=== PATIENT | female | born 1950 | race Caucasian/White ===

== ENCOUNTER 2020-06-18 10:08 | Emergency (ER) | payer OTHER, BC ==
[2020-06-18 10:20] VITALS: BP 162/98; PULSE 108; TEMP 97.9; BMI 25.7
[2020-06-18] MEDS ORDERED: SODIUM CHLORIDE 0.9% 500 ML INFUS.BAG IV ONE (11:15)
[2020-06-18 11:24] LABS: BASO % 0.8 % (0-2.0); EOS % 1.3 % (0-4.5); HEMATOCRIT 38.8 % (32.4-45.2); HEMOGLOBIN 13.4 GM/dL (10.7-15.3); LYMPH % 32.1 % (8-40); MCH 32.8 pg (25.7-33.7); MCHC 34.4 g/dl (32.0-36.0); MEAN CELL VOLUME 95.1 fl (80-96); MEAN PLT VOLUME 7.2 fl (7.5-11.1); MONO % 4.8 % (3.8-10.2); PLATELET COUNT 247 K/MM3 (134-434); RBC 4.08 M/mm3 (3.60-5.2); RDW 14.3 % (11.6-15.6); WHITE BLOOD COUNT 7.1 K/mm3 (4.0-10.0)
[2020-06-18 11:50] LABS: CHLORIDE 107 mmol/L (98-107); SODIUM 139 mmol/L (136-145)
[2020-06-18 11:52] LABS: CALCIUM 8.9 mg/dL (8.5-10.1)
[2020-06-18 11:53] LABS: ANION GAP 6 MMOL/L (8-16); BLOOD UREA NITROGEN 12.3 mg/dL (7-18); CO2 26 mmol/L (21-32); GLUCOSE,RANDOM 108 mg/dL (74-106)
[2020-06-18 11:56] LABS: CREATININE 0.7 mg/dL (0.55-1.3); SGOT/AST 59 U/L (15-37); SGPT/ALT 72 U/L (13-61)
[2020-06-18 11:57] LABS: BILIRUBIN,TOTAL 0.6 mg/dL (0.2-1)
[2020-06-18 11:59] LABS: ALK PHOS 78 U/L (45-117)
== END 2020-06-18 13:15 | disposition home or self-care (01) ==
LOC: JER 10:08
DX: R42 Dizziness and giddiness (principal)
CPT/HCPCS: 36415; 80053; 82550; 84484; 85025; 93005; 93010; 99284-25